=== PATIENT | female | born 1990 | race Hispanic/Latino ===

== ENCOUNTER 2017-05-01 20:10 | Inpatient (IN) | payer MEDICAID ==
[2017-05-01] MEDS ORDERED: AMBIEN PO PRN ×2 (21:12→21:20)
[2017-05-01] MEDS ORDERED: ZOFRAN IV PRN (21:13)
[2017-05-01] MEDS ORDERED: STADOL IV PRN (21:13)
[2017-05-01 21:33] LABS: Basophils % (Auto) 0.4 % (0.0-1.8); Eosinophils % (Auto) 0.5 % (0.0-4.3); Hematocrit 38.5 % (30.3-42.9); Hemoglobin 13.1 gm/dl (10.1-14.3); Mean Corpuscular HGB Conc 34 % (30-34); Mean Corpuscular Hemoglobin 31 pg (28-32); Mean Corpuscular Volume 90 fl (79-97); Platelet Count 230 K/mm3 (140-440); Red Blood Count 4.28 M/mm3 (3.65-5.03); Red Cell Distribution Width 13.8 % (13.2-15.2); White Blood Count 14.2 K/mm3 (4.5-11.0)
[2017-05-01] MEDS ORDERED: CERVIDIL VG ONE (22:00)
--- NOTE | 2017-05-02 09:54 | History and Physical Report ---
History of Present Illness Date of examination: 05/02/17 Date of admission: 05/01/17 20:10 Chief complaint: I'm here to be induced History of present illness: Patient is a 26 year old at 41.2 weeks who presents for post dates induction of labor Past History Past Medical History: no pertinent history Social history: - Obstetrical History Expected Date of Delivery: 04/24/17 Actual Gestation: 41 Week(s) 2 Day(s) : 1 Medications and Allergies Allergies Allergy/AdvReac Type Severity Reaction Status Date / Time No Known Allergies Allergy Unverified 05/01/17 20:18 Home Medications Medication Instructions Recorded Confirmed Last Taken Type No Known Home Medications [No 05/01/17 05/01/17 Unknown History Reported Home Medications] Active Meds: Active Medications Butorphanol Tartrate (Stadol) 2 mg IV Q2H PRN PRN Reason: Labor Pain Lactated Ringer's (Lactated Ringers) 1,000 mls @ 125 mls/hr IV DIRECT KUSH Ondansetron HCl (Zofran) 4 mg IV Q8H PRN PRN Reason: Nausea And Vomiting Zolpidem Tartrate (Ambien) 5 mg PO ONCE PRN PRN Reason: Sleep - Vital Signs Vital signs: Vital Signs Temp Resp 97.5 F L 20 05/01/17 20:30 05/01/17 20:30 Temp Pulse Resp BP Pulse Ox 96.7 F L 107 H 18 119/81 96 05/02/17 07:44 05/02/17 07:38 05/02/17 07:44 05/02/17 07:08 05/02/17 07:38 - Physical Exam Breasts: Cardiovascular: Regular rate, Normal S1, Normal S2 Lungs: Positive: Clear to auscultation, Normal air movement Abdomen: Positive: normal appearance, soft, normal bowel sounds. Negative: distention, tenderness Vulva: both: normal Vagina: Positive: normal moisture. Negative: discharge Cervix: Negative: lesion, discharge Uterus: Positive: normal size, normal contour Adnexa: both: normal Anus/Rectum: Positive: normal perianal skin, heme negative. Negative: rectal mass, hemorrhoids Extremities: Deep Tendon Reflex Grade: Normal +2 - Obstetrical FHR: auscultation normal Cervical Dilatation: 0 Cervical Effacement Percentage: 50 station: -3 Uterine Contraction Pattern: Irregular Uterine Tone Measurement Phase: Resting Results Result Diagrams: 05/01/17 20:50 Abnormal lab results 05/01/17 Range/Units 20:50 WBC 14.2 H (4.5-11.0) K/mm3 Seg Neutrophils % 76.5 H (40.0-70.0) % Seg Neutrophils # 10.9 H (1.8-7.7) K/mm3 All other labs normal. Assessment and Plan IUP at 41.1 who presents for post dates induction of labor. Admit for induction. Will start with Cervidil, then follow with pitocin. Anticipate
[2017-05-02] MEDS: LACTATED RINGERS 1,000 ML IV SCH ×2 (12:20→19:23)
[2017-05-02] MEDS: CYTOTEC VG SCH ×3 (13:37→22:26)
[2017-05-02] MEDS ORDERED: BRETHINE IVP PRN (14:00)
[2017-05-02] MEDS ORDERED: PITOCin/NS 30 UNIT/500ML 30 UNITS/500 ML BAG IV SCH ×2 (14:00)
[2017-05-02] MEDS ORDERED: PITOCin/NS 20 UNIT/1000ML DRIP 20 UNITS/1,000 ML BAG IV SCH (14:00)
[2017-05-02] MEDS ORDERED: XYLOCAINE 2% INFILTRATI ONE (14:00)
[2017-05-02] MEDS ORDERED: BRETHINE SUB-Q PRN (14:00)
[2017-05-02] MEDS ORDERED: ePHEDrine SULFATE IV PRN (14:00)
[2017-05-02] MEDS ORDERED: MINERAL OIL PO PRN (14:00)
[2017-05-03] MEDS: CYTOTEC VG SCH ×2 (02:36→06:51)
[2017-05-03] MEDS: LACTATED RINGERS 1,000 ML IV SCH ×4 (02:45→21:24)
[2017-05-03] MEDS ORDERED: SUBLIMAZE IV NR (14:00)
[2017-05-03] MEDS ORDERED: NARCAN 2 MG/2 ML IV PRN (15:00)
--- NOTE | 2017-05-03 15:00 | Anesthesia Consultation ---
Anesthesia Consult and Med Hx Date of service: 05/03/17 - Airway Anesthetic Teeth Evaluation: Good ROM Head & Neck: Adequate Mental/Hyoid Distance: Adequate Intubation Access Assessment: Probably Good - Pre-Operative Health Status ASA Pre-Surgery Classification: ASA2, Emergency Proposed Anesthetic Plan: Epidural, Spinal - Pulmonary Hx Asthma: No COPD: No Hx Pneumonia: No - Cardiovascular System Hx Hypertension: No - Central Nervous System Hx Seizures: No Hx Psychiatric Problems: No - Endocrine Hx Renal Disease: No Hx End Stage Renal Disease: No Hx Hypothyroidism: No Hx Hyperthyroidism: No - Hematic Hx Anemia: No Hx Sickle Cell Disease: No - Other Systems Hx Alcohol Use: No
[2017-05-03] MEDS: fentaNYL-BUPIV 2 MCG/ML-0.125% 200 MCG/100 ML BAG EPIDURAL SCH ×2 (15:22→23:18)
--- NOTE | 2017-05-03 19:20 | Progress Note ---
Assessment and Plan Day 2 of post dates induction. Patient now doing well. Progressing well. Patient has epidural in place and pitocin at 4 miu. Anticipate . Subjective - Subjective Date of service: 05/03/17 Interval history: Patient is a 26 year old at 41.2 weeks who presents for post dates induction of labor Patient reports: movement normal, contractions, other (patient received epidural and progressed to 3 cm. ) Objective - Vital Signs Vital Signs: Vital Signs - 12hr 05/03/17 05/03/17 05/03/17 08:55 14:05 14:29 Pulse Rate 100 H 114 H 136 H Blood Pressure 116/67 139/88 127/71 O2 Sat by Pulse Oximetry 05/03/17 05/03/17 05/03/17 14:30 14:33 14:35 Pulse Rate 147 H 136 H 137 H Blood Pressure 128/76 128/81 O2 Sat by Pulse 97 95 Oximetry 05/03/17 05/03/17 05/03/17 14:37 14:39 14:40 Pulse Rate 125 H 122 H 129 H Blood Pressure 127/76 124/71 O2 Sat by Pulse 93 Oximetry 05/03/17 05/03/17 05/03/17 14:41 14:43 14:45 Pulse Rate 121 H 123 H 126 H Blood Pressure 126/71 119/64 123/63 O2 Sat by Pulse 96 Oximetry 05/03/17 05/03/17 05/03/17 14:47 14:49 14:50 Pulse Rate 114 H 134 H 111 H Blood Pressure 124/66 113/62 O2 Sat by Pulse 97 Oximetry 05/03/17 05/03/17 05/03/17 14:51 14:53 14:55 Pulse Rate 114 H 121 H 109 H Blood Pressure 127/64 129/69 124/67 O2 Sat by Pulse 98 Oximetry 05/03/17 05/03/17 05/03/17 14:57 14:59 15:00 Pulse Rate 114 H 111 H 105 H Blood Pressure 125/71 129/73 O2 Sat by Pulse 97 Oximetry 05/03/17 05/03/17 05/03/17 15:01 15:03 15:05 Pulse Rate 115 H 110 H 111 H Blood Pressure 127/72 123/71 125/70 O2 Sat by Pulse 97 Oximetry 05/03/17 05/03/17 05/03/17 15:07 15:09 15:10 Pulse Rate 110 H 112 H 105 H Blood Pressure 126/71 128/73 O2 Sat by Pulse 98 Oximetry 05/03/17 05/03/17 05/03/17 15:11 15:13 15:15 Pulse Rate 109 H 105 H 120 H Blood Pressure 129/76 132/75 129/79 O2 Sat by Pulse 98 Oximetry 05/03/17 05/03/17 05/03/17 15:17 15:19 15:20 Pulse Rate 118 H 116 H 118 H Blood Pressure 126/75 132/78 O2 Sat by Pulse 98 Oximetry 05/03/17 05/03/17 05/03/17 15:21 15:23 15:25 Pulse Rate 116 H 108 H 116 H Blood Pressure 131/77 125/74 121/75 O2 Sat by Pulse 97 Oximetry 05/03/17 05/03/17 05/03/17 15:30 15:35 15:40 Pulse Rate 105 H 110 H 107 H Blood Pressure O2 Sat by Pulse 97 98 96 Oximetry 05/03/17 05/03/17 05/03/17 15:42 15:45 15:50 Pulse Rate 105 H 108 H 110 H Blood Pressure 125/72 O2 Sat by Pulse 96 96 Oximetry 05/03/17 05/03/17 05/03/17 15:55 15:57 16:00 Pulse Rate 110 H 112 H 117 H Blood Pressure 116/68 O2 Sat by Pulse 97 97 Oximetry 05/03/17 05/03/17 05/03/17 16:05 16:10 16:12 Pulse Rate 122 H 135 H 117 H Blood Pressure 125/75 O2 Sat by Pulse 97 96 Oximetry 05/03/17 05/03/17 05/03/17 16:15 16:20 16:25 Pulse Rate 107 H 115 H 121 H Blood Pressure O2 Sat by Pulse 98 96 97 Oximetry 05/03/17 05/03/17 05/03/17 16:27 16:30 16:35 Pulse Rate 127 H 124 H 111 H Blood Pressure 123/71 O2 Sat by Pulse 97 97 Oximetry 05/03/17 05/03/17 05/03/17 16:40 16:45 16:50 Pulse Rate 118 H 121 H 121 H Blood Pressure 131/74 O2 Sat by Pulse 97 98 98 Oximetry 1205/03/17 05/03/17 16:55 16:57 17:00 Pulse Rate 126 H 117 H 120 H Blood Pressure 127/78 O2 Sat by Pulse 98 100 Oximetry 05/03/17 05/03/17 05/03/17 17:05 17:10 17:12 Pulse Rate 115 H 118 H 120 H Blood Pressure 127/75 O2 Sat by Pulse 100 100 Oximetry 05/03/17 05/03/17 05/03/17 17:15 17:20 17:25 Pulse Rate 120 H 117 H 118 H Blood Pressure O2 Sat by Pulse 100 100 100 Oximetry 05/03/17 05/03/17 05/03/17 17:27 17:30 17:35 Pulse Rate 114 H 111 H 122 H Blood Pressure 121/75 O2 Sat by Pulse 100 100 Oximetry 05/03/17 05/03/17 05/03/17 17:40 17:43 17:45 Pulse Rate 115 H 118 H 117 H Blood Pressure 130/76 O2 Sat by Pulse 100 100 Oximetry 05/03/17 05/03/17 05/03/17 17:50 17:55 17:57 Pulse Rate 118 H 122 H 125 H Blood Pressure 126/74 O2 Sat by Pulse 100 100 Oximetry 05/03/17 05/03/17 05/03/17 18:00 18:05 18:10 Pulse Rate 118 H 129 H 107 H Blood Pressure O2 Sat by Pulse 100 100 100 Oximetry 05/03/17 05/03/17 05/03/17 18:12 18:15 18:20 Pulse Rate 120 H 115 H 110 H Blood Pressure 118/67 O2 Sat by Pulse 100 100 Oximetry 05/03/17 05/03/17 05/03/17 18:25 18:26 18:30 Pulse Rate 113 H 117 H 108 H Blood Pressure 116/66 O2 Sat by Pulse 100 100 Oximetry 05/03/17 05/03/17 05/03/17 18:35 18:40 18:42 Pulse Rate 130 H 110 H 118 H Blood Pressure 115/64 O2 Sat by Pulse 100 100 Oximetry 05/03/17 05/03/17 05/03/17 18:45 18:50 18:55 Pulse Rate 109 H 108 H 120 H Blood Pressure O2 Sat by Pulse 100 100 100 Oximetry 05/03/17 05/03/17 05/03/17 18:57 19:00 19:05 Pulse Rate 125 H 127 H 110 H Blood Pressure 117/64 O2 Sat by Pulse 100 100 Oximetry 05/03/17 05/03/17 05/03/17 19:10 19:12 19:15 Pulse Rate 142 H 129 H 140 H Blood Pressure 130/75 O2 Sat by Pulse 100 100 Oximetry - Exam Cardiovascular: Regular rate, Normal S1, Normal S2 Lungs: Clear to auscultation, Normal air movement Abdomen: Present: normal appearance, soft. Absent: distention, tenderness Vulva: both: normal Uterus: Present: normal FHR: auscultation normal Cervical Dilatation: 6 Cervical Effacement Percentage: 80 station: +1 Uterine Contraction Pattern: Regular Uterine Tone Measurement Phase: Contraction Extremities: normal - Labs Labs: Abnormal Labs 05/01/17 20:50 WBC 14.2 H Seg Neutrophils % 76.5 H Seg Neutrophils # 10.9 H
--- NOTE | 2017-05-04 01:31 | Procedure Note ---
OB Delivery Note - Delivery Date of Delivery: 05/04/17 Surgeon: GHANSHYAM CUNNINGHAM Estimated blood loss: 200cc - Vaginal Delivery presentation: vertex Delivery position: OA Intrapartum events: meconium Delivery induction: misoprostol Delivery augmentation: rupture of membranes, pitocin Delivery monitor: external FHT, external uterine Route of delivery: Delivery placenta: spontaneous Delivery cord: 3 umbilical vessels Episiotomy: mediolateral Delivery repair: chromic Anesthesia: epidural Delivery comments: Viable male delivered over intact perineum. placed on maternal abdomen. Cord clamped and cut after done pulsing. Small lacerartion repaired with 2.0 chromic. Excellent hemostasis. Patient tolerated procedure well. - A at 1 minute: 8 at 5 minutes: 9 Infant Gender: Male (8 pounds 8 ounces)
[2017-05-04] MEDS ORDERED: SODIUM CHLORIDE FLUSH SYRINGE 10 ML IV PRN (03:15)
[2017-05-04] MEDS ORDERED: TUCKS PAD TP PRN (03:15)
[2017-05-04] MEDS ORDERED: PHENERGAN PO PRN (03:15)
[2017-05-04] MEDS ORDERED: TYLENOL PO PRN (03:15)
[2017-05-04] MEDS ORDERED: MILK OF MAGNESIA PO PRN (03:15)
[2017-05-04] MEDS ORDERED: NORCO 5/325 PO PRN (03:15)
[2017-05-04] MEDS ORDERED: LANSINOH TP PRN (03:15)
[2017-05-04] MEDS ORDERED: ZOFRAN IV PRN (03:15)
[2017-05-04] MEDS ORDERED: DULCOLAX PR PRN (03:15)
[2017-05-04] MEDS ORDERED: PHENERGAN PR PRN (03:15)
[2017-05-04] MEDS ORDERED: BENADRYL PO PRN (03:15)
[2017-05-04] MEDS: MOTRIN PO SCH ×2 (12:34→17:48)
[2017-05-04] MEDS: PRENATAL VITAMIN PO SCH (12:35)
[2017-05-04] MEDS: COLACE PO SCH (12:35)
[2017-05-04 14:45] LABS: Hematocrit 30.1 % (30.3-42.9); Hemoglobin 10.4 gm/dl (10.1-14.3)
--- NOTE | 2017-05-04 19:00 | Progress Note ---
Assessment and Plan PPD #0. Doing well. Plan for discharge tomorrow. Subjective - Subjective Date of service: 05/04/17 Interval history: Patient is a 26 year old at 41.2 weeks who presents for post dates induction of labor Patient reports: appetite normal, voiding normally, pain well controlled, ambulating normally : doing well Objective - Vital Signs Latest vital signs: Vital Signs Temp Pulse Resp BP BP Pulse Ox 05/04/17 16:55 97.6 F 104 H 20 115/67 05/04/17 08:59 98.0 F 111 H 20 128/81 05/04/17 04:00 111 H 116/79 94 05/04/17 02:42 120 H 123/66 05/04/17 02:41 131 H 96 05/04/17 02:36 118 H 95 05/04/17 02:31 118 H 94 05/04/17 02:27 129 H 128/69 05/04/17 02:26 116 H 95 05/04/17 02:21 129 H 95 05/04/17 02:16 137 H 95 05/04/17 02:12 141 H 131/70 05/04/17 02:11 144 H 95 05/04/17 02:06 137 H 96 05/04/17 02:01 148 H 95 05/04/17 01:57 146 H 130/57 05/04/17 01:56 143 H 96 05/04/17 01:51 149 H 95 05/04/17 01:49 147 H 94 05/04/17 01:46 153 H 95 05/04/17 01:43 166 H 94 05/04/17 01:42 155 H 123/60 05/04/17 01:41 148 H 96 05/04/17 01:38 97.5 F L 22 05/04/17 01:36 152 H 98 05/04/17 01:31 142 H 98 05/04/17 01:27 146 H 139/64 05/04/17 01:26 130 H 97 05/04/17 01:21 140 H 97 05/04/17 01:16 170 H 98 05/04/17 01:11 198 H 100 05/04/17 01:06 191 H 100 05/04/17 01:01 164 H 100 05/04/17 00:56 153 H 100 05/04/17 00:51 133 H 100 05/04/17 00:46 186 H 100 05/04/17 00:43 145 H 91 05/04/17 00:41 148 H 99 05/04/17 00:36 155 H 100 05/04/17 00:31 126 H 100 05/04/17 00:27 123 H 139/75 05/04/17 00:26 120 H 100 05/04/17 00:21 124 H 99 05/04/17 00:16 131 H 100 05/04/17 00:13 127 H 136/84 05/04/17 00:11 134 H 100 05/04/17 00:06 113 H 100 05/04/17 00:01 114 H 100 05/03/17 23:58 116 H 134/77 05/03/17 23:56 117 H 100 05/03/17 23:51 119 H 100 05/03/17 23:46 138 H 100 05/03/17 23:42 136 H 135/80 05/03/17 23:41 130 H 100 05/03/17 23:36 110 H 100 05/03/17 23:31 112 H 100 05/03/17 23:28 111 H 139/82 05/03/17 23:26 112 H 100 05/03/17 23:21 133 H 100 05/03/17 23:16 119 H 100 05/03/17 23:12 144 H 130/60 05/03/17 23:11 130 H 100 05/03/17 23:06 142 H 100 05/03/17 23:01 105 H 100 05/03/17 22:58 109 H 122/64 05/03/17 22:56 118 H 100 05/03/17 22:51 123 H 100 05/03/17 22:46 121 H 100 05/03/17 22:42 134 H 110/66 05/03/17 22:41 124 H 100 05/03/17 22:36 99.3 F 160 H 22 100 05/03/17 22:31 140 H 100 05/03/17 22:27 120 H 135/82 05/03/17 22:26 141 H 100 05/03/17 22:21 136 H 100 05/03/17 22:16 123 H 100 05/03/17 22:12 139 H 139/81 05/03/17 22:11 133 H 100 05/03/17 22:06 137 H 100 05/03/17 22:01 137 H 100 05/03/17 21:57 130 H 133/80 05/03/17 21:56 143 H 100 05/03/17 21:51 149 H 92 05/03/17 21:50 134 H 97 05/03/17 21:45 128 H 98 05/03/17 21:42 121 H 114/62 05/03/17 21:40 131 H 99 05/03/17 21:35 129 H 100 05/03/17 21:30 131 H 100 05/03/17 21:28 123 H 114/61 05/03/17 21:25 119 H 100 05/03/17 21:20 165 H 100 05/03/17 21:15 119 H 100 05/03/17 21:14 99.0 F 22 100 05/03/17 21:12 153 H 95/53 05/03/17 21:10 157 H 100 05/03/17 21:05 135 H 100 05/03/17 21:00 157 H 100 05/03/17 20:58 146 H 129/63 05/03/17 20:55 144 H 100 05/03/17 20:50 153 H 100 05/03/17 20:45 146 H 100 05/03/17 20:43 130 H 108/64 05/03/17 20:40 131 H 100 05/03/17 20:35 137 H 100 05/03/17 20:30 139 H 100 05/03/17 20:27 142 H 110/65 05/03/17 20:25 129 H 100 05/03/17 20:20 136 H 100 05/03/17 20:15 129 H 100 05/03/17 20:12 134 H 115/70 05/03/17 20:10 136 H 100 05/03/17 20:05 137 H 100 05/03/17 20:00 129 H 100 05/03/17 19:57 137 H 122/72 05/03/17 19:55 134 H 100 05/03/17 19:50 129 H 100 05/03/17 19:45 127 H 100 05/03/17 19:43 136 H 120/72 05/03/17 19:40 156 H 100 05/03/17 19:35 132 H 100 05/03/17 19:30 128 H 100 05/03/17 19:27 127 H 117/68 05/03/17 19:25 116 H 100 05/03/17 19:20 117 H 100 05/03/17 19:15 140 H 100 05/03/17 19:12 129 H 130/75 05/03/17 19:10 142 H 100 05/03/17 19:05 110 H 100 Intake and Output 05/04/17 05/04/17 05/04/17 06:59 14:59 22:59 Intake Total 240 Output Total 250 400 600 Balance -250 -400 -360 Intake: Oral 240 Output: Urine 250 400 600 Indwelling Catheter 250 400 Void 600 Other: Total, Intake Amount 240 Total, Output Amount 200 400 600 Estimated Blood Loss 200 - Exam Breasts: Present: deferred Cardiovascular: Present: Regular rate, Normal S1, Normal S2 Lungs: Present: Clear to auscultation, Normal air movement Abdomen: Present: normal appearance, soft, normal bowel sounds Uterus: Present: normal, firm, fundal height below umbilicus Extremities: Present: normal Deep Tendon Reflex Grade: Normal +2 - Labs Labs: Abnormal lab results 05/04/17 Range/Units 14:11 Hct 30.1 L D (30.3-42.9) %
[2017-05-05] MEDS: MOTRIN PO SCH ×2 (01:19→12:28)
[2017-05-05 10:35] VITALS: BP 119/74
--- NOTE | 2017-05-05 10:35 | Discharge Summary ---
Providers - Providers Date of Admission: 05/01/17 20:10 Date of discharge: 05/05/17 Attending physician: GHANSHYAM CUNNINGHAM Primary care physician: GHANSHYAM CUNNINGHAM Hospitalization Reason for admission: induction of labor Delivery: Episiotomy: mediolateral Laceration: none Other procedures: none complications: none Discharge diagnosis: IUP at term delivered baby: male Hospital course: unremarkable Condition at discharge: Good Disposition: DC-01 TO HOME OR SELFCARE Plan - Discharge Medications Prescriptions: HYDROcodone/ACETAMINOPHEN [[place] 5-325 Tablet] 1 each PO Q6H #20 tablet Ibuprofen [Motrin] 800 mg PO Q8HR PRN #40 tablet PRN Reason: Pain Pnv No.95/Ferrous Fum/Folic AC [ Formula Tablet] 1 each PO DAILY #30 tablet - Provider Discharge Summary Additional instructions: [] Smoking cessation referral if applicable(refer to patient education folder for contact #) [] Refer to [facility]'s [facility] Booklet Call your doctor immediately for: * Fever > 100.5 * Heavy vaginal bleeding ( >1 pad per hour) * Severe persistent headache * Shortness of breath * Reddened, hot, painful area to leg or breast * Drainage or odor from incision. * Keep incision clean and dry at all times and follow doctor's instructions regarding bathing/showering - Follow up plan Follow up: GHANSHYAM CUNNINGHAM MD [Primary Care Provider] - 7 Days
[2017-05-05] MEDS: COLACE PO SCH (10:40)
[2017-05-05] MEDS: PRENATAL VITAMIN PO SCH (10:40)
== END 2017-05-05 15:40 | disposition home or self-care (01) | DRG 775 ==
LOC: LD 20:10 → OB 05-04 03:12
PROVIDERS: ADMIT Obstetrics & Gynecology; ATTEND Obstetrics & Gynecology
PROC: 10E0XZZ Delivery of Products of Conception, External Approach (ICD-10-PCS; principal; 2017-05-04)
PROC: 3E0P7VZ Introduction of Hormone into Female Reproductive, Via Natural or Artificial Opening (ICD-10-PCS; 2017-05-04)
PROC: 0W8NXZZ Division of Female Perineum, External Approach (ICD-10-PCS; 2017-05-04)
PROC: 3E0R3BZ Introduction of Anesthetic Agent into Spinal Canal, Percutaneous Approach (ICD-10-PCS; 2017-05-04)
PROC: 00HU33Z Insertion of Infusion Device into Spinal Canal, Percutaneous Approach (ICD-10-PCS; 2017-05-04)
DX: O48.0 Post-term pregnancy (principal); Z3A.41 41 weeks gestation of pregnancy; Z37.0 Single live birth; O77.0 Labor and delivery complicated by meconium in amniotic fluid
CPT/HCPCS: 36415; 59200; 85014; 85018; 85025; 86850; 86900; 86901; 99211; A6250; G0463; J0595; J2590; J3010; J7120

== ENCOUNTER 2022-02-10 12:58 | Outpatient (CLI) | payer MEDICAID ==
[2022-02-10 14:27] VITALS: BP 127/72
== END 2022-02-10 16:06 | disposition home or self-care (01) ==
LOC: TRG 12:58 → APU 13:01 → TRG 16:06
PROVIDERS: ATTEND Obstetrics & Gynecology
DX: O42.92 Full-term premature rupture of membranes, unspecified as to length of time between rupture and onset of labor (principal); Z3A.39 39 weeks gestation of pregnancy
CPT/HCPCS: 36415; 59025; 84112